=== PATIENT | male | born 1980 | race Caucasian/White ===

== ENCOUNTER 2018-01-19 13:22 | Emergency (ER) | payer OTHER ==
--- NOTE | 2018-01-19 13:31 | EDPHY ---
HPI/HX/ROS/PE/MDM Narrative: CHIEF COMPLAINT: Left flank pain HISTORY OF PRESENT ILLNESS: The patient is a 37 y/o male complaining of sudden onset left flank pain and nausea onset at 12:30, 1.5 hours ago. He denies familial history of kidney stones or personal history of similar symptoms. Around 2 weeks ago he ran 30 miles and had blood in his urine after the run, which has happened before. Denies nausea or vomiting after the run. For the past 2 weeks he has not preformed strenuous exercise. Since developing his symptoms today he has also had mild pain with urination. Denies testicular swelling or pain. No fever, chills, chest pain, shortness of breath, palpitations, vomiting, diarrhea, headache, lightheadedness. REVIEW OF SYSTEMS: Aside from elements discussed in the HPI, a comprehensive 10-point review of systems was reviewed and is negative. PAST MEDICAL HISTORY: Denies SOCIAL HISTORY: at bedside, lives in [place], employed VITAL SIGNS: Reviewed by me GENERAL: Pacing, pale, well-developed, well-nourished, resting comfortably in no respiratory distress. HEENT: Atraumatic. Eyes: No icterus, no injection. Mouth: moist mucous membranes. No erythema or lesions. Neck: supple with no adenopathy. LUNGS: Clear to auscultation bilaterally, no wheezes, rhonchi or rales. CARDIAC: Regular rate and rhythm, no rubs, murmurs or gallops. ABDOMEN: Soft, nontender, nondistended, bowel sounds normal. BACK: High left CVA tenderness to palpation. EXTREMITIES: No trauma. No edema. Range of motion is normal throughout. NEURO: Alert and oriented, grossly nonfocal. SKIN: Warm and dry, no rash. PSYCHIATRIC: Normal mentation, no agitation. Portions of this note were transcribed by a medical staff services coordinator. I personally performed a history, physical exam, medical decision making, and confirmed accuracy of information the transcribed note. ED Course: The patient is a 37 y/o male presenting with sudden onset left flank pain and nausea onset at 12:30, 1.5 hours ago. On exam he has deep left CVA tenderness to palpation. He is also pale and pacing in the room. Labs and abdominopelvic CT ordered. 100 mcg IV Fentanyl, 4mg IV Zofran, and 1L IV NS ordered. 1424: Patient's pain has only mildly improved; 30mg IV Toradol administered. 1500: Reassessed patient, he is feeling better after Toradol. Imaging findings are still pending at this time. 1612: Patient has a 3x4mm left distal ureter calculus that is 2cm from the UVJ. 1613: Reassessed patient and discussed imaging findings. Flomax given prior to discharge. I have advised him to take oxycodone, Zofran, ibuprofen, Toradol, and Flomax for his symptoms. I have also advised him to follow up with a urologist and strain his urine. Return precautions provided; patient is comfortable with this plan. MDM: Differential diagnosis of the patient's flank pain was considered including but not limited to musculoskeletal causes, kidney stone, pyelonephritis, shingles, and intra-abdominal causes such as diverticulitis and appendicitis. - Data Points Imaging Results: CT scan without contrast Impression: 1. 3 x 4 mm distal left ureteral calculus with associated obstructive uropathy on the left side. 2. See above report for additional findings. Results called to Mary Beth Dailey MD on 01/19/2018 at 16:04. Dictated By: Bakari Sparks MD Imaging: Discussed imaging studies w/ call center nurse Radiologist, I viewed and interpreted images myself Laboratory Results: Laboratory Results 01/19/18 13:30 01/19/18 13:30 Medications Given: Discontinued Medications Fentanyl (Sublimaze) 100 mcg IVP EDNOW ONE Stop: 01/19/18 14:03 Last Admin: 01/19/18 14:12 Dose: 100 mcg Sodium Chloride (Ns) 1,000 mls @ 0 mls/hr IV EDNOW ONE; Wide Open PRN Reason: Protocol Stop: 01/19/18 14:03 Last Admin: 01/19/18 14:12 Dose: 1,000 mls Ketorolac Tromethamine (Toradol) 30 mg IVP EDNOW ONE Stop: 01/19/18 14:24 Last Admin: 01/19/18 14:36 Dose: 30 mg Ondansetron HCl (Zofran) 4 mg IVP EDNOW ONE Stop: 01/19/18 14:03 Last Admin: 01/19/18 14:12 Dose: 4 mg Tamsulosin HCl (Flomax) 0.4 mg PO EDNOW ONE Stop: 01/19/18 16:13 Last Admin: 01/19/18 16:39 Dose: 0.4 mg General Time Seen by Provider: 01/19/18 13:30 Initial Vital Signs: Initial Vital Signs Temperature (C) 36.8 C 01/19/18 13:26 Heart Rate 67 01/19/18 13:26 Respiratory Rate 18 01/19/18 13:26 Blood Pressure 122/89 H 01/19/18 13:26 O2 Sat (%) 98 01/19/18 13:26 O2 Delivery Mode Room Air O2 (L/minute) 2 Allergies/Adverse Reactions: No Known Allergies Allergy (Unverified 01/19/18 13:25) Home Medications: Medication Instructions Recorded Ketorolac Tromethamine 10 mg PO Q6H #16 tab 01/19/18 Ondansetron Odt [Zofran Odt 4 mg 4 mg PO Q6 PRN #8 tab 01/19/18 (RX)] Tamsulosin HCl [Flomax] 0.4 mg PO DAILY #7 cap 01/19/18 oxyCODONE/APAP 5/325 [Percocet 1 tab PO QID PRN #14 tab 01/19/18 5/325 (*)] Departure - Departure Disposition: Home, Routine, Self-Care Clinical Impression: Kidney stone on left side Condition: Good Instructions: Kidney Stones (ED), How to Strain Your Urine (ED) Additional Instructions: Take oxycodone as needed for severe pain. Use Zofran as needed for nausea. Take ibuprofen 600 mg every 6-8 hours as needed for moderate pain. This will also help with inflammation. If the ibuprofen does not control your pain, you may take Toradol as prescribed. Take Flomax as directed. Followup with urology as directed below. Strain urine. Return to the emergency department if you have worsening pain, fevers, persistent vomiting, or other concerns. Referrals: Drew Hayes MD [Medical Doctor] - As per Instructions Winston Pedro MD [Medical Doctor] - As per Instructions Prescriptions: Ketorolac Tromethamine 10 mg PO Q6H #16 tab Ondansetron Odt [Zofran Odt 4 mg (RX)] 4 mg PO Q6 PRN #8 tab PRN Reason: Nausea oxyCODONE/APAP 5/325 [Percocet 5/325 (*)] 1 tab PO QID PRN #14 tab PRN Reason: Pain Tamsulosin HCl [Flomax] 0.4 mg PO DAILY #7 cap Report Scribed for: Mary Beth Dailey Report Scribed by: Bee Frias Date of Report: 01/19/18 Time of Report: 14:47
[2018-01-19] MEDS ORDERED: NS 1,000 ML IV ONE (14:02)
[2018-01-19] MEDS ORDERED: ONDANSETRON 4 MG/2 ML VIAL IVP ONE (14:02)
[2018-01-19] MEDS ORDERED: fentaNYL 100 MCG/2 ML INJ IVP ONE (14:02)
[2018-01-19 14:10] LABS: PLATELET COUNT 223 10^3/uL (150-400)
[2018-01-19 14:16] LABS: CREATINE KINASE 98 IU/L (0-224)
[2018-01-19] MEDS ORDERED: KETOROLAC 30 MG/1 ML SDV IVP ONE (14:23)
[2018-01-19] MEDS ORDERED: TAMSULOSIN HCL 0.4 MG CAP PO ONE (16:12)
[2018-01-19 16:43] VITALS: BP 141/85
== END 2018-01-19 16:43 | disposition home or self-care (01) ==
DX: N20.0 Calculus of kidney (principal); E86.9 Volume depletion, unspecified
CPT/HCPCS: 96374; J1885; J2405; J3010